=== PATIENT | male | born 1995 | race Caucasian/White ===

== ENCOUNTER 2018-11-21 01:24 | Emergency (ER) | payer SELFPAY ==
[2018-11-21] MEDS ORDERED: Albuterol/Ipratropium 3.0-0.5 MG/3 ML Neb Soln NEB ONE (01:29)
[2018-11-21] MEDS ORDERED: Albuterol/Ipratropium 3.0-0.5 MG/3 ML Neb Soln ONE (01:30)
[2018-11-21] MEDS ORDERED: predniSONE 20 MG Tab PO ONE (01:30)
--- NOTE | 2018-11-21 01:34 | EDM.PDOC ---
ED HPI GENERAL MEDICAL PROBLEM - General Chief Complaint: Asthma Stated Complaint: ASTHMA ATTACK Time Seen by Provider: 11/21/18 01:28 - History of Present Illness INITIAL COMMENTS - FREE TEXT/NARRATIVE: HISTORY AND PHYSICAL: History of present illness: The patient is a 23-year-old male with a long-standing history of asthma who was on maintenance therapy in the past but nothing in the last few years as he has not seen a provider and has a rescue inhaler that he ran out of today who presents to the ED having an asthma attack that started about 6 hours ago. The patient says his asthma is triggered by hay and dogs and he was around both today and his asthma started kicking in and he uses inhaler but ran out. He was trying to buy some products [id number] and opted to come here for treatment. Patient says he has never taken steroids for an asthma attack in the past and does not live here locally and is from [place] but here working. He says he has been hydrating and has had no nausea vomiting or abdominal pain has no chest pain but he does have a spastic dry cough. Prior to this asthma episode he did not have fevers chills or upper respiratory symptoms or any flulike symptoms. Review of systems: As per history of present illness and below otherwise all systems reviewed and negative. Past medical history: As per history of present illness and as reviewed below otherwise noncontributory. Surgical history: As per history of present illness and as reviewed below otherwise noncontributory. Social history: No reported history of drug or alcohol abuse. Family history: As per history of present illness and as reviewed below otherwise noncontributory. Physical exam: General: Well-developed well-nourished man who is nontoxic and speaking clearly in the ED without breathlessness. Vital signs are noted by me HEENT: Atraumatic, normocephalic, negative for conjunctival pallor or scleral icterus, mucous membranes moist, throat clear, neck supple, nontender, trachea midline. Lungs: Clear to auscultation with diminished breath sounds in the bases and occasional fine wheeze and some tight air exchange but no worker breathing or stridor, breath sounds equal bilaterally, chest nontender. Heart: S1S2, regular rate and rhythm no overt murmurs Abdomen: Soft, nondistended, nontender. NABS Pelvis: Deferred. Genitourinary: Deferred. Rectal: Deferred. Extremities: Atraumatic, negative for cords or calf pain. Neurovascular unremarkable. No pedal edema full range of motion Neuro: Awake, alert, oriented. Cranial nerves II through XII unremarkable. Cerebellum unremarkable. Motor and sensory unremarkable throughout. Exam nonfocal. Diagnostics: Therapeutics: DuoNeb prednisone spacer After the DuoNeb the patient is feeling significantly improved and he is moving air much better in the lower lung duque. There is no wheezing. He has been given a spacer and prescriptions for prednisone and the albuterol rescue inhaler and has been advised to follow-up to get on maintenance therapy. Impression: Acute asthma attack Definitive disposition and diagnosis as appropriate pending reevaluation and review of above. Chest Pain Score (Numeric/FACES): 1 - Related Data Allergies Allergy/AdvReac Type Severity Reaction Status Date / Time No Known Allergies Allergy Verified 11/21/18 01:31 Home Meds: Home Meds Albuterol Sulfate [Proair Hfa] 8.5 gm IH ASDIRECTED 11/21/18 [History] ED ROS GENERAL - Review of Systems Review Of Systems: ROS reveals no pertinent complaints other than HPI. ED EXAM, GENERAL - Physical Exam Exam: See Below (See dictation) Course - Vital Signs Last Recorded V/S: Last Vital Signs Temp 36.0 C 11/21/18 01:27 Pulse 95 11/21/18 01:27 Resp 22 H 11/21/18 01:27 BP 123/78 11/21/18 01:27 Pulse Ox 95 11/21/18 01:27 - Orders/Labs/Meds Orders: Active Orders 24 hr Category Date Time Status Communication Order [RC] STAT Care 11/21/18 01:30 Active RT Aerosol Therapy [RC] ASDIRECTED Care 11/21/18 01:29 Active Meds: Medications Discontinued Medications Generic Name Dose Route Start Last Admin Trade Name Freq PRN Reason Stop Dose Admin Albuterol/Ipratropium 3 ml 11/21/18 01:29 11/21/18 01:36 Duoneb 3.0-0.5 Mg/3 Ml NEB 11/21/18 01:30 3 ml ONETIME ONE Administration Albuterol/Ipratropium Confirm 11/21/18 01:30 11/21/18 01:34 Duoneb 3.0-0.5 Mg/3 Ml Administered 11/21/18 01:31 Not Given Dose 3 ml .ROUTE .STK-MED ONE Prednisone 40 mg 11/21/18 01:30 11/21/18 01:37 Prednisone PO 11/21/18 01:31 40 mg ONETIME ONE Administration Departure - Departure Time of Disposition: 01:55 Disposition: Home, Self-Care 01 Condition: Good Clinical Impression: Asthma exacerbation Qualifiers: Asthma severity: mild Asthma persistence: unspecified Qualified Code(s): J45.901 - Unspecified asthma with (acute) exacerbation - Discharge Information Instructions: Asthma, Adult, [id number] Forms: ED Department Discharge Additional Instructions: The following information is given to patients seen in the emergency department who are being discharged to home. This information is to outline your options for follow-up care. We provide all patients seen in our emergency department with a follow-up referral. The need for follow-up, as well as the timing and circumstances, are variable depending upon the specifics of your emergency department visit. If you don't have a primary care physician on staff, we will provide you with a referral. We always advise you to contact your personal physician following an emergency department visit to inform them of the circumstance of the visit and for follow-up with them and/or the need for any referrals to a consulting specialist. The emergency department will also refer you to a specialist when appropriate. This referral assures that you have the opportunity for followup care with a specialist. All of these measure are taken in an effort to provide you with optimal care, which includes your followup. Under all circumstances we always encourage you to contact your private physician who remains a resource for coordinating your care. When calling for followup care, please make the office aware that this follow-up is from your recent emergency room visit. If for any reason you are refused follow-up, please contact the [facility] emergency department at and ask to speak to the emergency department charge nurse. [facility] Primary care- Internal Medicine and Family [address] [id number] Please try to avoid triggers for your asthma and push hydration. Take the steroids as prescribed and also use the Ventolin inhaler 1-2 puffs every 6 hours for the next 24 hours and then as needed with a spacer you have been given. Call and schedule a follow-up appointment with one of our clinic providers or your provider at home and return to ER as needed and as discussed. - My Orders Last 24 Hours: My Active Orders 11/21/18 01:29 RT Aerosol Therapy [RC] ASDIRECTED 11/21/18 01:30 Communication Order [RC] STAT - Assessment/Plan Last 24 Hours: My Active Orders 11/21/18 01:29 RT Aerosol Therapy [RC] ASDIRECTED 11/21/18 01:30 Communication Order [RC] STAT
== END 2018-11-21 02:05 | disposition home or self-care (01) ==
LOC: MW.ED 01:24
DX: J45.901 Unspecified asthma with (acute) exacerbation (principal); Z79.899 Other long term (current) drug therapy
CPT/HCPCS: 94640; 99284; A9270; 99283; J7620-GY